=== PATIENT | female | born 1950 | race Caucasian/White ===

== ENCOUNTER → 2022-01-18 | Outpatient (CLI) | payer MEDICARE ==
[~2022-01-18] MED LIST: CATHETER FLUSH 10 ML SYR IV PRN; HOLD METFORMIN - RECEIVED CONTRAST 20 ML VIAL IV SCH; IOHEXOL 350 MG/ML 100 ML (OMNIPAQUE 350) VIAL IV ONE; NS 100 ML (IVPB) BAG IV ONE
--- NOTE | 2022-01-18 11:36 | Diagnostic Imaging Report ---
PROCEDURE: CT abdomen and pelvis with and without contrast. TECHNIQUE: Precontrast acquisitions were acquired through the abdomen and pelvis. Multiple contiguous axial images were obtained through the abdomen and pelvis after the administration of intravenous contrast. Auto Exposure Controls were utilized during the CT exam to meet ALARA standards for radiation dose reduction. INDICATION: Hydroureteronephrosis. No prior studies are available for comparison. FINDINGS: The lung bases are clear. No discrete liver mass is identified. The gallbladder appears to be stone filled. No biliary ductal dilatation is seen. Pancreas and spleen are unremarkable. No adrenal mass is identified. Both kidneys contain numerous renal sinus cysts which can mimic hydronephrosis on ultrasound. There is no evidence of hydronephrosis on today's exam. The renal collecting systems and ureters appear to be nondilated. No definite calculi are seen. The bladder is unremarkable. Aorta is calcified but nonaneurysmal. Bowel loops are normal caliber. There is no ascites or fluid collection. Uterus is unremarkable. The bony structures are nonacute. IMPRESSION: 1. Cholelithiasis. 2. Bilateral renal sinus cysts, which can mimic hydronephrosis on ultrasound. There is no evidence of hydro-nephrosis or hydroureter on today's CT. No acute feature is detected. Dictated by: Dictated on workstation # [id number]
== END ==
LOC: RAD 08:45
PROVIDERS: ATTEND Nurse Practitioner
DX: N28.1 Cyst of kidney, acquired (principal); K80.20 Calculus of gallbladder without cholecystitis without obstruction
CPT/HCPCS: 74178